=== PATIENT | male | born 1945 | race Caucasian/White ===

== ENCOUNTER 2021-05-31 07:14 | Inpatient (IN) ==
--- NOTE | 2021-05-13 14:57 | PAT Medication Instructions ---
Medication Instructions Date of Service May 13, 2021 Home Medications Ca carb-D3-mag [id number] [Caltrate + D3 Plus Minerals] 1 tab PO BID Marijuana-Medical Card 1 inh INHALATION TID PRN Super Beta Prostate Otc 1 tab PO BID apixaban [Eliquis] 5 mg PO BID ascorbic acid (vitamin C) 1 g PO QAM doxazosin 4 mg PO QPM esomeprazole magnesium 40 mg PO QAM prednisone 20 mg PO QPM simvastatin 40 mg PO HS tamsulosin 0.4 mg PO HS zinc 50 mg PO QAM ASK your prescriber and surgeon apixaban [Eliquis] 5 mg PO BID STOP taking 2 weeks before surgery (or as soon as possible if surgery is within 2 weeks) Super Beta Prostate Otc 1 tab PO BID DO NOT take the morning of surgery Ca carb-D3-mag [id number]-[id number]-[id number]-Zn [Caltrate + D3 Plus Minerals] 1 tab PO BID Marijuana-Medical Card 1 inh INHALATION TID PRN ascorbic acid (vitamin C) 1 g PO QAM zinc 50 mg PO QAM Take morning of surgery With a small sip of water, OTHERWISE NOTHING TO EAT OR DRINK AFTER MIDNIGHT: esomeprazole magnesium 40 mg PO QAM Take evening before surgery Ca carb-D3-mag fj-ixr-nbqf-Zn [Caltrate + D3 Plus Minerals] 1 tab PO BID [employer]-Medical Card 1 inh INHALATION TID PRN (if needed) doxazosin 4 mg PO QPM prednisone 20 mg PO QPM simvastatin 40 mg PO HS tamsulosin 0.4 mg PO HS Other Notes If you have any questions please call us at [phone] or [phone] or [phone] or [phone]
--- NOTE | 2021-05-17 11:14 | Anesthesiology Consultation ---
Date of Service May 17, 2021 Assessment & Plan (1) Encounter for pre-operative examination: - COVID screening: Per assessment on 05/17: Travel screen negative, no known COVID-19 positive contacts or current COVID-19 related symptoms. Surgeon arranging preop COVID testing. Awaiting results. - ETOH use: Patient reports drinking alcohol a few times a week. Per chart review, patient has noted to drink 24 drinks/week. Chart Review Chart Review: Acceptable Risk for Surgery and Patient seen in Pre Admission Testing Teaching & Discussion Pre-Anesthesia Teaching/Discussion Notes: Instructed NPO after midnight before surgery,except medications with 15 cc of water. Medication instructions provided according to the PAT guidelines. History Surgery Operation Date: 05/31/21 07:45 Proposed Procedures p L2-S1 Decompression Fusion Spinal Cord Monitoring - Johnny Morris DO Height/Weight Height: 5 ft 7 in Weight: 84.3 kg Allergies Allergy/AdvReac Type Severity Reaction Status Date / Time Penicillins Allergy Unknown Hives Verified 04/30/21 09:09 Sulfa (Sulfonamide Allergy Unknown Hives Verified 04/30/21 09:09 Antibiotics) morphine AdvReac Unknown Agitation Verified 05/17/21 11:12 FOOD Allergy Unknown Vazquez Uncoded 05/17/21 11:12 beans, eggplant- swelling, dyspnea Medications Home Medications Medication Instructions Recorded Confirmed Last Taken Ca carb-D3-mag [id number]-[id number] 1 tab PO BID 04/30/21 04/30/21 Unknown [Caltrate + D3 Plus Minerals] Marijuana-Medical Card 1 inh INHALATION TID PRN 04/30/21 04/30/21 Unknown Super Beta Prostate Otc 1 tab PO BID 04/30/21 04/30/21 Unknown apixaban [Eliquis] 5 mg PO BID 04/30/21 04/30/21 Unknown ascorbic acid (vitamin C) 1 g PO QAM 04/30/21 04/30/21 Unknown doxazosin 4 mg PO QPM 04/30/21 04/30/21 Unknown esomeprazole magnesium 40 mg PO QAM 04/30/21 04/30/21 Unknown prednisone 20 mg PO QPM 04/30/21 04/30/21 Unknown simvastatin 40 mg PO HS 04/30/21 04/30/21 Unknown tamsulosin 0.4 mg PO HS 04/30/21 04/30/21 Unknown zinc 50 mg PO QAM 04/30/21 04/30/21 Unknown Past Medical History Medical History Chronic back pain + LE radiculopathy Enlarged prostate GERD (gastroesophageal reflux disease) Hepatitis, autoimmune Dx 2 years ago, under surveillance by PCP Hyperlipidemia Hypertension Pulmonary embolism 01/2020 (unknown etiology) > on Eliquis Trigger finger R/L Exercise / Class Metabolic Activity III < 4 Walking/Shop/Light housework (one FS (no chest pain, mild SOB in setting of worsening back pain)) Past Family History Family History Brother Family hx of colon cancer Past Surgical History Surgical History History of back surgery No hardware History of carpal tunnel release R/L History of colonoscopy History of esophagogastroduodenoscopy (EGD) History of herniorrhaphy History of neck surgery No hardware Past Anesthesia History No Hx of Anesthesia Complications and No Family Hx of Anesthesia Complications History of PONV No Hx of PONV and No Hx of Motion Sickness Social History Smoking Status: Current every day smoker tobacco type: pipe and cigars Smoking cigarettes per day: Pipe/small cigars 5x/day Do You Dip or Chew Tobacco: No Hx Alcohol Use: Yes Alcohol type: beer alcohol intake frequency: a few times a week (24 per week) Hx Substance Use: Yes substance use type: marijuana Substance Use Type Other:: Medical marijuana (inhaled) 2-3x/day Review of Systems Patient denies chest pain, shortness of breath, fever, chills, cough, wheezing, palpitations. Physical Exam Vital Signs VITALS BP 159/88 P 89 TEMP SP02 95%RA RESP 18 PHYSICAL Full cervical extension range of motion. Full TMJ range of motion. TMD 3.5 finger breaths Mallampati Score 1 Dentition: intact, + one crown Lungs: clear throughout to auscultation Cardiac: regular rate and rhythm, no murmurs noted Spine: normal Carotid arteries: negative bruit Extremities: no edema Lab Results Anesthesia Preop Results Results Anesthesia Widget: WBC 13.47 K/uL (4.8-10.8) H 05/17/21 Hgb 15.6 g/dL (14.0-18.0) 05/17/21 Hct 46.0 % (42-52) 05/17/21 Plt 173 K/uL (130-400) 05/17/21 Na 138 mmol/L (136-145) 05/17/21 K 3.7 mmol/L (3.5-5.1) 05/17/21 Cl 104 mmol/L (98-107) 05/17/21 CO2 29 mmol/L (21-32) 05/17/21 BUN 11 mg/dl (7-18) 05/17/21 Creat 0.79 mg/dl (0.6-1.4) 05/17/21 Glucose Level 90 mg/dl (70-99) 05/17/21 PT 10.2 Seconds (9.0-12.0) 05/17/21 PTT 23.4 Seconds (21.0-31.0) 05/17/21 INR 1.0 (0.9-1.1) 05/17/21 Urine Color Yellow 05/17/21 Urine Appearance Clear (Clear) 05/17/21 Urine pH 6.0 (4.5-7.5) 05/17/21 Urine Specific [place] 1.005 (1.000-1.030) 05/17/21 Urine Protein Negative (Negative) 05/17/21 Urine Glucose (UA) Negative (Negative) 05/17/21 Urine Ketones Negative (Negative) 05/17/21 Urine Blood Negative (Negative) 05/17/21 Urine Nitrite Negative (Negative) 05/17/21 Urine Bilirubin Negative (Negative) 05/17/21 Urine Urobilinogen Negative (Negative) 05/17/21 Urine Leukocyte Esterase Negative (Negative) 05/17/21 Blood Type B Positive 05/17/21 Antibody Screen NEGATIVE 05/17/21 Lab Comments: Elevated WBC > preop labs to be forwarded to PCP for continuity of care Testing Electrocardiogram Date: 05/17/21 SR with marked sinus arrhythmia at 70bpm. NS STA. Chest X-Ray Date: 05/17/21 FINDINGS: The cardiac and mediastinal contours are normal. There is no evidence of focal pulmonary consolidation. There is no evidence of failure. No pleural effusions are visualized.[There are linear areas of scarring/atelectasis within the left lung. IMPRESSION: No active disease in the chest.
[~2021-05-31 07:14] MED LIST: ACETAMINOPHEN 500 MG TAB PO SCH; CLINDAMYCIN 600 MG/54 ML BAG IV SCH; CeleBREX 200 MG CAP PO SCH; GABAPENTIN 300 MG CAP PO SCH; LR 15ML/HR IV SCH
[2021-05-31] MEDS ORDERED: MIDAZOLAM HCL 1 MG/ML 2ML VIAL ONE (08:39)
[2021-05-31] MEDS ORDERED: fentaNYL citrate 100 MCG/2 ML VIAL ONE (08:39)
--- NOTE | 2021-05-31 08:49 | History & Physical Report ---
Date of Service May 31, 2021 Assessment & Plan (1) Neurogenic claudication due to lumbar spinal stenosis: Admission and Anticipated Discharge Date Admission Date: L2-S1 decompression fusion History of Present Illness Chief Complaint: Back and bilateral leg pain Primary Care Provider: Kris Lea DO This is a 75-year-old male who presents with chronic persistent back and leg pain. Failing course of nonoperative care is here for surgical intervention. Allergies Allergy/AdvReac Type Severity Reaction Status Date / Time Penicillins Allergy Unknown Hives Verified 05/31/21 08:13 Sulfa (Sulfonamide Allergy Unknown Hives Verified 05/31/21 08:13 Antibiotics) morphine AdvReac Unknown Agitation Verified 05/31/21 08:13 FOOD Allergy Unknown Vazquez Uncoded 05/31/21 08:13 beans, eggplant- swelling, dyspnea Home Medications Medication Instructions Recorded Confirmed Type Ca carb-D3-mag [id number]-Zn 1 tab PO BID 04/30/21 05/31/21 History [Caltrate + D3 Plus Minerals] Marijuana-Medical Card 1 inh INHALATION TID PRN 04/30/21 05/31/21 History Super Beta Prostate Otc 1 tab PO BID 04/30/21 05/31/21 History apixaban [Eliquis] 5 mg PO BID 04/30/21 05/31/21 History ascorbic acid (vitamin C) 1 g PO QAM 04/30/21 05/31/21 History doxazosin 4 mg PO QPM 04/30/21 05/31/21 History esomeprazole magnesium 40 mg PO QAM 04/30/21 05/31/21 History prednisone 20 mg PO QPM 04/30/21 05/31/21 History simvastatin 40 mg PO HS 04/30/21 05/31/21 History tamsulosin 0.4 mg PO HS 04/30/21 05/31/21 History zinc 50 mg PO QAM 04/30/21 05/31/21 History Past Med/Surg History Medical History Chronic back pain + LE radiculopathy Enlarged prostate GERD (gastroesophageal reflux disease) Hepatitis, autoimmune Dx 2 years ago, under surveillance by PCP Hyperlipidemia Hypertension Pulmonary embolism 01/2020 (unknown etiology) > on Eliquis Trigger finger R/L Surgical History History of back surgery No hardware History of carpal tunnel release R/L History of colonoscopy History of esophagogastroduodenoscopy (EGD) History of herniorrhaphy History of neck surgery No hardware Family History Brother Family hx of colon cancer Social History (Updated 04/30/21 @ 09:35 by Krista Del Valle RN) Smoking Status: Current every day smoker Cigarettes Per Day: Pipe/small cigars 5x/day; Second Hand Exposure: Yes (SPOUSE SMOKES/PARENTS SMOKED); Do You Dip or Chew Tobacco: No; Hx Alcohol Use: Yes Alcohol type: beer Hx Substance Use: Yes Substance Use Type Other:: Medical marijuana (inhaled) 2- 3x/day Preferred Language: Lebanese Communication Ability: Effective Day Trader Required: No Beliefs That Will Affect Care: None Current Living Situation: Spouse current occupational status: retired Other Information That Helps Us Care for You: No Feels Safe at Home: Yes Safety Concerns: Feels Safe At This Time Assistive Devices: Brace/Splint/Immobilizer and Glasses Assistive Devices Comment: BACK BRACE PRN Physical Exam Physical Exam: Patient is alert and oriented Heart regular rhythm Lungs clear to auscultation Results & Data ([facility]) Vital Signs (Past 12 Hours) Vital Signs Temp Pulse Resp BP Pulse Ox 05/31/21 08:10 36.6 C 88 20 177/99 H 97
--- NOTE | 2021-05-31 08:49 | History & Physical Bridge Note ---
Date of Service May 31, 2021 History & Physical Bridge Note I have examined the patient, reviewed the History & Physical and in the interval since the performance of the History & Physical I have noted the following changes of clinical significance: no changes noted
[2021-05-31] MEDS ORDERED: BUPIVACAINE/EPINEPHRINE 0.5% MPF 1:200,000 30 ML VIAL ONE (09:08)
[2021-05-31] MEDS ORDERED: KETAMINE 50 MG/5 ML SYRINGE ONE (09:14)
[2021-05-31] MEDS ORDERED: HYDROmorphone INJ 2 MG/ML SYR/VIAL IV PRN (09:20)
[2021-05-31] MEDS ORDERED: ONDANSETRON INJ 2 MG/ML 2 ML VIAL IV PRN ×2 (09:20→14:19)
[2021-05-31] MEDS ORDERED: ATROPINE SULFATE 0.1 MG/ML 10ML SYR IV PRN (09:20)
[2021-05-31] MEDS ORDERED: fentaNYL citrate 100 MCG/2 ML VIAL IV PRN (09:20)
[2021-05-31] MEDS ORDERED: ePHEDrine sulfate 50 MG/ML AMP IV PRN (09:20)
[2021-05-31] MEDS ORDERED: ROCURONIUM BROMIDE 10 MG/ML 5 ML VIAL IV ONE ×3 (10:05→12:40)
[2021-05-31] MEDS ORDERED: LIDOCAINE 2% 2 ML VIAL/AMP(20MG/ML) INFIL ONE (10:05)
[2021-05-31] MEDS ORDERED: PROPOFOL IV EMULSION 10 MG/ML 20 ML VIAL IV ONE (10:05)
[2021-05-31] MEDS ORDERED: ONDANSETRON INJ 2 MG/ML 2 ML VIAL ONE (10:05)
[2021-05-31] MEDS ORDERED: DEXAMETHASONE SOD INJ 4 MG/ML VIAL ONE (10:05)
[2021-05-31] MEDS ORDERED: PHENYLEPHRINE 100MCG/ML 5ML SYR ONE (10:06)
[2021-05-31] MEDS ORDERED: ePHEDrine sulfate 50 MG/ML SYR ONE (10:06)
[2021-05-31] MEDS ORDERED: NEOSTIGMINE METHYLSULFATE 1 MG/ML 10ML VIAL ONE (10:06)
[2021-05-31] MEDS ORDERED: GLYCOPYRROLATE 0.2 MG/ML VIAL ONE (10:06)
[2021-05-31] MEDS ORDERED: PHENYLEPHRINE HCL 10 MG/ML VIAL ONE (10:06)
[2021-05-31] MEDS ORDERED: HYDROmorphone INJ 2 MG/ML SYR/VIAL ONE (10:07)
[2021-05-31] MEDS ORDERED: FLOSEAL HEMOSTATIC MATRIX 10ML TOP ONE (12:27)
--- NOTE | 2021-05-31 12:41 | Operative Report ---
Post Operative Report Pre & Post Diagnosis Operation Date: 05/31/21 09:05 Pre-Op Diagnosis: Lumbar spinal stenosis with neurogenic claudication and radiculopathy Post-Op Diagnosis: Same I identified the patient and participated in the time-out.: Yes Procedure Operation Date: 05/31/21 09:05 Actual Procedures #1 revision decompression with bilateral medial facetectomies and foraminotomies L2-3, L3-4, L4-5 and L5-S1. #2 posterior spinal fusion L2-3, L3-4, L4-5 and L5- S1. #3 placement posterior segmental instrumentation L2-S1. #4 interbody fusion L4-5 L5-S1. #5 placed a peek cage 13 x 26 mm at L4-5 and L5-S1. #6 placement of locally harvested morselized autograft in the posterior gutters. #7 placement infuse collagen sponge, master graft in the posterior lateral gutters and I factor in the interbody space. Surgeon Johnny Morris, Back End Developer Harlan Pack Estimated Blood Loss 150 Findings Consistent with Post-Op Diagnosis Specimens None Indications This is a 75-year-old male who presents with admission diagnosis after failing since course of nonoperative care is here for the above-mentioned procedure. Description of Procedure Patient met with identified informed consent obtained. Patient was then taken to the operative suite underwent ablation placed in a prone positions on a Clive table on top Nav frame. All bony prominences well-padded eyes inspected to ensure no external pressure placed upon the bed at this point the lumbar spine was prepped and draped in a sterile fashion. Sharp dissection with the assistance of Bovie cautery performed down to and exposing the remaining lamina of L2 L3-L4-L5 and the sacral ala bilaterally. Helm cephalad fashion revision bilateral medial facetectomy and foraminotomy was performed at L2-3 L3-4 L4-5 L5-S1. Pedicle screws then placed in L2 L3-L4-L5 and S1 levels bilaterally with assistance of fluoroscopy by way of a transfemoral approach and left complete discectomy of L5-S1 was performed endplates curetted to subcortical bleeding bone and a 13 x 26 mm peek cage filled I factor tapped in position. Then proceeded L4-[address] of a transforaminal approach and left complete discectomy performed endplates curetted to subcortically bone and again a 13 x 26 mm peek cage filled with I factor tapped in position. Rods were then locked in final position bilaterally. The transverse processes of L 2 L3-L4-L5 and sacral ala burred to subcortically bone. Infuse collagen sponge master graft and local autograft was placed in the posterior gutters. 15 round ADRIEL drain inserted. The incision was then closed with 1 Vicryl in the fascia 2-0 Vicryl subcutaneously and 4 Monocryl for final skin closure. Steri-Strips dressings placed. Patient will continue PACU stable addition. Please note spinal cord monitoring was utilized at the procedure no changes noted. Clotilde Claros record was present at the entire surgery involved the patient positioning complex portions of the surgery and final skin closure. I attest to the content of the Intraoperative Record and any orders documented therein. Any exceptions are noted below.
--- NOTE | 2021-05-31 12:44 | Fluoroscopy Report ---
INTRAOPERATIVE RADIOGRAPHS CLINICAL HISTORY: Lumbar spinal fusion. Fluoroscopy time: 37 seconds. FINDINGS: 4 spot fluoroscopic views of the lumbar spine are presented. There has been discectomy at L 4-L5 and L5-S1 with laminectomy and posterior fusion seen from L2-S1. Interpedicular screws are prese nt at all levels. The orthopedic hardware appears intact. IMPRESSION: Intraoperative images from lumbar spinal fusion surgery as above. Electronically signed by: Lenin Orozco M.D. 05/31/2021 12:43 PM
--- NOTE | 2021-05-31 13:41 | Anesthesiology Progress Note ---
Date of Service May 31, 2021 Anesthesia Post Procedure Vital Signs Vital Signs: Temp Pulse Pulse Resp BP Pulse Ox 05/31/21 13:30 87 12 155/97 H 93 05/31/21 13:20 85 12 153/89 H 94 05/31/21 13:10 85 19 149/89 H 97 05/31/21 13:01 96.8 F L 85 18 138/92 95 05/31/21 08:10 97.9 F 88 20 177/99 H 97 Pain Intensity Back: Pain Intensity: 5 Transfer of Care Handoff Completed per policy Notes Mental Status: alert / awake / arousable and participated in evaluation Patient Amnestic to Procedure: Yes Nausea / Vomiting: adequately controlled Pain: adequately controlled Airway Patency, RR, SpO2: stable & adequate BP & HR: stable & adequate Hydration State: stable & adequate Anesthetic Complications: no major complications apparent and Pt Satisfied with anesthetic care
[2021-05-31] MEDS ORDERED: [UNRECOGNIZED DRUG - OTHER] INH PRN (14:19)
[2021-05-31] MEDS ORDERED: MAGNESIUM HYDROXIDE SUSP 30 ML UDC PO PRN (14:19)
[2021-05-31] MEDS ORDERED: SOD PHOSPHATE/SOD BIPHOSPHATE ENEMA 132 ML BTL PR PRN (14:19)
[2021-05-31] MEDS ORDERED: DO NOT ADMINISTER FLU VACCINE PRN (14:19)
[2021-05-31] MEDS ORDERED: ACETAMINOPHEN 500 MG TAB PO PRN (14:19)
[2021-05-31] MEDS ORDERED: LORazepam 0.5 MG TAB PO PRN (14:19)
[2021-05-31] MEDS ORDERED: traMADol HCL 50 MG TABLET PO PRN (14:19)
[2021-05-31] MEDS ORDERED: ACETAMINOPHEN 1,000 MG/100 ML VIAL IV PRN (14:19)
[2021-05-31] MEDS ORDERED: METOCLOPRAMIDE HCL INJ 5 MG/ML 2 ML VIAL IV PRN (14:19)
[2021-05-31] MEDS ORDERED: ONDANSETRON 4 MG OD TAB PO PRN (14:19)
[2021-05-31] MEDS ORDERED: ALUMINUM/MAGNESIUM SUSP 30 ML UDC PO PRN (14:19)
[2021-05-31] MEDS ORDERED: FAMOTIDINE 20 MG TAB PO PRN (14:19)
[2021-05-31] MEDS ORDERED: NALOXONE HCL 0.4 MG/1 ML VIAL/CARP IV PRN (14:19)
[2021-05-31] MEDS ORDERED: LORazepam 0.5 MG/1 ML VIAL IV PRN (14:19)
[2021-05-31] MEDS ORDERED: DO NOT ADMINISTER PNEUMOCOCCAL VACCINE PRN (14:19)
[2021-05-31] MEDS ORDERED: PROMETHAZINE HCL 12.5 MG in SODIUM CHLORIDE 0.9% 50 ML IV PRN (14:19)
[2021-05-31] MEDS ORDERED: diphenhydrAMINE Capsule 25 MG CAP PO PRN (14:19)
[2021-05-31] MEDS ORDERED: HYDROmorphone INJ 0.5 MG/0.5 ML SYR IV PRN (14:19)
[2021-05-31] MEDS ORDERED: hydrOXYzine HCl 25 MG TAB PO PRN (14:19)
--- NOTE | 2021-05-31 15:15 | Hospitalist Consultation ---
Date of Consultation May 31, 2021 Assessment & Plan (1) Post-operative state: Underwent L2 S1 decompression fusion with Dr. Morris, on May 31, for lumbar stenosis, neurogenic claudication Patient tolerated procedure well Pain management, PT OT per orthopedics Monitor H&H and hemodynamic status (2) Pulmonary embolism: History of pulmonary embolism Patient's been on Eliquis 5 mg twice a day Held Eliquis preoperatively Resume Eliquis per orthopedics discretion (3) Chronic alcohol use: Denies any alcohol withdrawal issues in the past Last drink on Thursday closely monitor for any alcohol withdrawal Start gabapentin 200 twice a day and closely monitor (4) Tobacco use: Will order nicotine patch Patient counseled on cessation (5) Autoimmune hepatitis: Continue home prednisone (6) GERD (gastroesophageal reflux disease): Continue home esomeprazole (7) Hyperlipidemia: Continue home simvastatin History of Present Illness Reason for Consultation: post-op medical management Attending Physician: Johnny Morris, DO History of Present Illness Patient is a 75-year-old male, with history of autoimmune hepatitis, GERD, hyperlipidemia, history of PE (on Eliquis) who now presents for scheduled surgery for lumbar stenosis. Underwent L2 S1 decompression fusion with Dr. Morris earlier today. Patient is everyday smoker, about 5 cigarettes a day, and drinker, reports 6 beers a day. Last drink was on Thursday. Denies any liquor. Patient follows with primary care physician, Dr. Ponce with [facility]. Currently pt is lying in bed in no acute distress. He is hard of hearing. Patient's is at the bedside and provides most of the history. Patient denies any chest pain, or history of heart disease, shortness of breath, or any chronic use of inhalers. He is just feeling tired after surgery however has no complaints only some postsurgical back pain. Catheter is placed and draining yellow urine. Patient is able to move legs and has no sensory loss. Denies any abdominal pain nausea or vomiting. Allergies Allergy/AdvReac Type Severity Reaction Status Date / Time Penicillins Allergy Unknown Hives Verified 05/31/21 08:13 Sulfa (Sulfonamide Allergy Unknown Hives Verified 05/31/21 08:13 Antibiotics) morphine AdvReac Unknown Agitation Verified 05/31/21 08:13 FOOD Allergy Unknown Vazquez Uncoded 05/31/21 08:13 beans, eggplant- swelling, dyspnea Home Medications Medication Instructions Recorded Confirmed Type Ca carb-D3-mag [id number] 1 tab PO BID 04/30/21 05/31/21 History [Caltrate + D3 Plus Minerals] Marijuana-Medical Card 1 inh INHALATION TID PRN 04/30/21 05/31/21 History Super Beta Prostate Otc 1 tab PO BID 04/30/21 05/31/21 History apixaban [Eliquis] 5 mg PO BID 04/30/21 05/31/21 History ascorbic acid (vitamin C) 1 g PO QAM 04/30/21 05/31/21 History doxazosin 4 mg PO QPM 04/30/21 05/31/21 History esomeprazole magnesium 40 mg PO QAM 04/30/21 05/31/21 History prednisone 20 mg PO QPM 04/30/21 05/31/21 History simvastatin 40 mg PO HS 04/30/21 05/31/21 History tamsulosin 0.4 mg PO HS 04/30/21 05/31/21 History zinc 50 mg PO QAM 04/30/21 05/31/21 History Patient History Medical History Chronic back pain + LE radiculopathy Enlarged prostate GERD (gastroesophageal reflux disease) Hepatitis, autoimmune Dx 2 years ago, under surveillance by PCP Hyperlipidemia Hypertension Pulmonary embolism 01/2020 (unknown etiology) > on Eliquis Trigger finger R/L Surgical History History of back surgery No hardware History of carpal tunnel release R/L History of colonoscopy History of esophagogastroduodenoscopy (EGD) History of herniorrhaphy History of neck surgery No hardware Family History Brother Family hx of colon cancer Social History Smoking Status: Current every day smoker Cigarettes Per Day: Pipe/small cigars 5x/day; Second Hand Exposure: Yes (SPOUSE SMOKES/PARENTS SMOKED); Do You Dip or Chew Tobacco: No; Hx Alcohol Use: Yes Alcohol type: beer Hx Substance Use: Yes Substance Use Type Other:: Medical marijuana (inhaled) 2- 3x/day Preferred Language: Faroese Communication Ability: Effective Cutter Inspector Required: No Beliefs That Will Affect Care: None Current Living Situation: Spouse current occupational status: retired Other Information That Helps Us Care for You: No Feels Safe at Home: Yes Safety Concerns: Feels Safe At This Time Assistive Devices: Brace/Splint/Immobilizer and Glasses Assistive Devices Comment: BACK BRACE PRN Review of Systems Review of Systems: All systems reviewed & are unremarkable except as noted in HPI & below Constitutional: + fatigue; no fever and no chills Respiratory: + cough (on and off); no dyspnea Cardiovascular: no chest pain and no edema Gastrointestinal: no abdominal pain, no nausea and no vomiting Physical Exam Constitutional: WD/WN, vitals as above Eyes: PERRL, conjunctivae normal, anicteric sclerae ENMT: external ear and nose normal, oropharynx normal Neck: trachea midline, no thyromegaly normal visual inspection Respiratory: normal respiratory effort, lungs clear to auscultation Cardiovascular: RRR, no murmur, no edema Chest (Breasts): Chest: normal inspection of chest Gastrointestinal (Abdomen): Inspection/Auscultation: abdomen normal to inspection and normal bowel sounds; abdomen not distended Percussion/Palpation: abdomen soft; abdomen nontender, no guarding and abdomen not rigid Musculoskeletal: Head/Neck/Chest: normocephalic and head atraumatic Skin: no rashes, warm and dry Neurologic: PERRL, EOMI, accommodation nl, no face palsy, no dysarthria Psychiatric: A+Ox3, euthymic affect Genitourinary: no CVA tenderness Vincent catheter placed, draining yellow urine Results & Data Results & Data ([facility]) Vital Signs (Past 12 Hours) Vital Signs Temp Pulse Pulse Resp BP Pulse Ox 05/31/21 14:31 36.4 C L 91 H 18 163/94 H 94 05/31/21 14:05 36.4 C L 92 H 20 154/99 H 94 05/31/21 13:50 89 14 167/101 H 93 05/31/21 13:40 36.1 C L 88 14 162/103 H 94 05/31/21 13:30 87 12 155/97 H 93 05/31/21 13:20 85 12 153/89 H 94 05/31/21 13:10 85 19 149/89 H 97 05/31/21 13:01 36.0 C L 85 18 138/92 95 05/31/21 08:10 36.6 C 88 20 177/99 H 97 Laboratory Results 05/31/21 05/31/21 05/31/21 Range/Units 08:07 07:40 07:40 COVID-19 Eval [facility] SARS-CoV-2, RNA, NAAT NEGATIVE (NEGATIVE) Blood Type B Positive Antibody Screen NEGATIVE Crossmatch See Detail Medications Administered Current Inpatient Medications Acetaminophen (Acetaminophen 500 Mg Tab) 1,000 mg PO PREOP AVILA Stop: 05/31/21 18:00 Last Admin: 05/31/21 08:00 Dose: 1,000 mg Documented by: Acetaminophen (Acetaminophen 500 Mg Tab) 1,000 mg PO Q8H PRN PRN Reason: MILD Pain Scale 1,2,3 & Pre PT Stop: 06/30/21 14:18 Al Hydrox/Mg Hydrox/Simethicone (Aluminum/Magnesium Susp 30 Ml Udc) 30 ml PO Q6H PRN PRN Reason: Dyspepsia Stop: 06/30/21 14:18 Ascorbic Acid (Ascorbic Acid 500 Mg Tab) 1,000 mg PO QAM [facility] Stop: 07/01/21 08:59 Atropine Sulfate (Atropine Sulfate 0.1 Mg/Ml 10ml Syr) 0.5 mg IV Q1M PRN PRN Reason: PACU Use-HR<40 &/or Bradycardi Stop: 05/31/21 17:20 Bisacodyl (Bisacodyl 10 Mg Supp) 10 mg MT DAILY PRN PRN Reason: Constipation Stop: 07/02/21 07:59 Celecoxib (Celebrex 200 Mg Cap) 200 mg PO PREOP AVILA Stop: 05/31/21 18:00 Last Admin: 05/31/21 07:59 Dose: 200 mg Documented by: Diphenhydramine HCl (Diphenhydramine Capsule 25 Mg Cap) 25 mg PO Q6H PRN PRN Reason: Allergic Rhinitis/Insomnia Stop: 06/30/21 14:18 Doxazosin Mesylate (Doxazosin Mesylate 4 Mg Tab) 4 mg PO QPM [facility] Stop: 06/30/21 20:59 Ephedrine Sulfate (Ephedrine Sulfate 50 Mg/Ml Amp) 5 mg IV Q5M PRN PRN Reason: PACU Use Only-SBP<90 mmHg Stop: 05/31/21 17:20 Famotidine (Famotidine 20 Mg Tab) 20 mg PO Q12H PRN PRN Reason: Dyspepsia Stop: 06/30/21 14:18 Fentanyl Citrate (Fentanyl Citrate 100 Mcg/2 Ml Vial) 50 mcg IV Q5M PRN PRN Reason: PACU Use Only-Pain Stop: 05/31/21 17:20 Last Admin: 05/31/21 13:27 Dose: 50 mcg Documented by: Gabapentin (Gabapentin 300 Mg Cap) 300 mg PO PREOP AVILA Stop: 05/31/21 18:00 Last Admin: 05/31/21 07:59 Dose: 300 mg Documented by: Hydromorphone HCl (Hydromorphone Inj 2 Mg/Ml Syr/Vial) 0.5 mg IV Q5M PRN PRN Reason: PACU Use Only-Pain Stop: 05/31/21 17:20 Hydromorphone HCl (Hydromorphone Inj 0.5 Mg/0.5 Ml Syr) 0.5 mg IV Q3H PRN PRN Reason: MOD pain (scale 4-6) & Pre PT Stop: 06/14/21 14:18 Hydromorphone HCl (Hydromorphone Inj 1 Mg/Ml Syringe) 1 mg IV Q3H PRN PRN Reason: severe pain (scale 7-10) Stop: 06/14/21 14:18 Hydroxyzine HCl (Hydroxyzine Hcl 25 Mg Tab) 25 mg PO Q8H PRN PRN Reason: Anxiety Stop: 06/30/21 14:18 Lactated Ringer's (Lr) 1,000 mls @ 15 mls/hr IV .Q24H [facility] Stop: 06/01/21 05:59 Last Infusion: 05/31/21 09:24 Dose: Infused Documented by: Clindamycin Phosphate (Cleocin) 600 mg in 54 mls @ 100 mls/hr IV PREOP AVILA Stop: 06/01/21 05:59 Last Admin: 05/31/21 09:24 Dose: 100 mls/hr Documented by: Lactated Ringer's (Lr) 1,000 mls @ 100 mls/hr IV .Q10H [facility] Stop: 06/30/21 14:18 Promethazine HCl 12.5 mg/ (Sodium Chloride) 50.5 mls @ 202 mls/hr IV Q6H PRN PRN Reason: Nausea &/or Vomiting Stop: 06/30/21 14:18 Acetaminophen (Ofirmev) 1,000 mg in 100 mls @ 400 mls/hr IV Q8H PRN PRN Reason: Pain Rating 1-3 & Pre PT Stop: 06/01/21 12:42 Lorazepam (Ativan) 0.5 mg in 1 mls @ 1 mls/min IV Q8H PRN PRN Reason: Sedation/Anxiety Stop: 06/30/21 14:18 Clindamycin Phosphate 600 mg/ (Dextrose) 54 mls @ 100 mls/hr IV Q8H [facility] Stop: 05/31/21 22:52 Influenza Virus Vaccine Quadrival (Do Not Administer Flu Vaccine) 1 ea N/A PRN PRN PRN Reason: Notification Stop: 06/30/21 14:18 Lorazepam (Lorazepam 0.5 Mg Tab) 0.5 mg PO Q8H PRN PRN Reason: sedation/anxiety Stop: 06/30/21 14:18 Magnesium Hydroxide (Magnesium Hydroxide Susp 30 Ml Udc) 30 ml PO Q24H PRN PRN Reason: Constipation Stop: 06/30/21 14:18 Metoclopramide HCl (Metoclopramide Hcl Inj 5 Mg/Ml 2 Ml Vial) 10 mg IV Q6H PRN PRN Reason: Nausea &/or Vomiting Stop: 06/30/21 14:18 Naloxone HCl (Naloxone Hcl 0.4 Mg/1 Ml Vial/Carp) 0.1 mg IV Q5M PRN PRN Reason: Oversedation/respiratory dep Stop: 06/30/21 14:18 Non-Formulary Medication (Marijuana-Medical Card) 1 puffs INH TID PRN PRN Reason: Pain Non-Formulary Medication (Super Beta Prostate Otc) 1 tab PO BID AVILA Stop: 06/30/21 20:59 Ondansetron HCl (Ondansetron Inj 2 Mg/Ml 2 Ml Vial) 4 mg IV ONCE PRN PRN Reason: PACU Use Only-Nausea/Vomiting Stop: 05/31/21 17:20 Ondansetron HCl (Ondansetron Inj 2 Mg/Ml 2 Ml Vial) 4 mg IV Q6H PRN PRN Reason: Nausea &/or Vomiting Stop: 06/30/21 14:18 Ondansetron HCl (Ondansetron 4 Mg Od Tab) 4 mg PO Q6H PRN PRN Reason: Nausea Stop: 06/30/21 14:18 Oxycodone HCl (Oxycodone Hcl Ir 5 Mg Tab (Immediate Release)) 5 - 10 mg PO Q4H PRN PRN Reason: Pain & Pre PT Stop: 06/14/21 14:18 Pantoprazole Sodium (Pantoprazole 40 Mg Tab) 40 mg PO QAM [facility] Stop: 07/01/21 08:59 Pneumococcal Polyvalent Vaccine (Do Not Administer Pneumococcal Vaccine) 1 ea N/A PRN PRN PRN Reason: Notification Stop: 06/30/21 14:18 Polyethylene Glycol (Polyethylene (Miralax) 17 Gm Pack) 17 gm PO Q6 [facility] Stop: 07/01/21 05:59 Prednisone (Prednisone 20 Mg Tab) 20 mg PO QPM [facility] Stop: 06/30/21 20:59 Senna/Docusate Sodium (Docusate Sodium/Senna 50/8.6mg Tab) 2 tab PO HS [facility] Stop: 06/30/21 20:59 Simvastatin (Simvastatin 40 Mg Tab) 40 mg PO HS [facility] Stop: 06/30/21 20:59 Sodium Biphosphate/Sodium Phosphate (Sod Phosphate/Sod Biphosphate Enema 132 Ml Btl) 132 ml MT ONE PRN PRN Reason: Constipation Stop: 06/30/21 14:18 Tamsulosin HCl (Tamsulosin Hcl 0.4 Mg Cap) 0.4 mg PO HS [facility] Stop: 06/30/21 20:59 Tramadol HCl (Tramadol Hcl 50 Mg Tablet) 50 - 100 mg PO Q4H PRN PRN Reason: Moderate-Severe pain & Pre PT Stop: 06/30/21 14:18 Zinc Sulfate (Zinc Sulfate 220 Mg Capsule) 220 mg PO QAM [facility] Stop: 07/01/21 08:59
[2021-05-31] MEDS ORDERED: ALBUT/IPRATROP 3MG/0.5MG NEB 3 ML VIAL NEB PRN (15:46)
[2021-05-31] MEDS: HYDROmorphone INJ 1 MG/ML SYRINGE IV PRN ×2 (17:21→23:05)
[2021-05-31] MEDS: LACTATED RINGER'S 1,000 ML IV SCH (17:21)
[2021-05-31] MEDS: NICOTINE 7 MG/24 HR TDSY TD SCH (17:35)
[2021-05-31] MEDS: CLINDAMYCIN 600 MG in DEXTROSE 5% 50 ML IV SCH (17:55)
[2021-05-31] MEDS ORDERED: GABAPENTIN 100 MG CAP PO SCH (21:00)
[2021-05-31] MEDS ORDERED: [UNRECOGNIZED DRUG - OTHER] PO SCH (21:00)
[2021-05-31] MEDS: CALCIUM CARBONATE 500 MG CHEWABLE TAB PO PRN (21:16)
[2021-05-31] MEDS: guaiFENesin 600 MG TABCR PO SCH (21:55)
[2021-05-31] MEDS: TAMSULOSIN HCL 0.4 MG CAP PO SCH (21:55)
[2021-05-31] MEDS: predniSONE 20 MG TAB PO SCH (21:55)
[2021-05-31] MEDS: DOCUSATE SODIUM/SENNA 50/8.6MG TAB PO SCH (21:55)
[2021-05-31] MEDS: SIMVASTATIN 40 MG TAB PO SCH (21:55)
[2021-05-31] MEDS: DOXAZosin MESYLATE 4 MG TAB PO SCH (21:55)
[2021-05-31] MEDS: GABAPENTIN 100 MG CAP PO SCH (23:04)
[2021-06-01] MEDS: CLINDAMYCIN 600 MG in DEXTROSE 5% 50 ML IV SCH (01:31)
[2021-06-01] MEDS: LACTATED RINGER'S 1,000 ML IV SCH (02:30)
[2021-06-01] MEDS: POLYETHYLENE (MIRALAX) 17 GM PACK PO SCH ×4 (05:52→23:01)
[2021-06-01 05:55] LABS: Basophils # (auto) 0.01 K/uL (0-0.2); Basophils % (auto) 0.1 %; Hematocrit (blood only) 37.5 % (42-52); Hemoglobin 12.6 g/dL (14.0-18.0); Immature Granulocytes # (auto) 0.06 K/uL (0.00-0.02); Immature Granulocytes % (auto) 0.4 %; Lymphocytes # (auto) 0.81 K/uL (1.2-3.4); Mean Corpuscular Hemoglobin 30.9 pg (25-34); Mean Corpuscular Hgb Conc 33.6 g/dL (32-36); Mean Corpuscular Volume 91.9 fL (80-100); Mean Platelet Volume 9.6 fL (7.4-10.4); Monocytes # (auto) 1.64 K/uL (0.11-0.59); Monocytes % (auto) 10.1 %; Neutrophils # (auto) 13.74 K/uL (1.4-6.5); Neutrophils % (auto) 84.4 %; Platelet Count 141 K/uL (130-400); RDW Coefficient of Variation 12.9 % (11.5-14.5); RDW Standard Deviation 43.2 fL (36.4-46.3); Red Blood Count 4.08 M/uL (4.7-6.1); White Blood Count 16.26 K/uL (4.8-10.8)
[2021-06-01 06:24] LABS: BUN Creatinine Ratio 27.5 (10-20); Calcium 9.1 mg/dl (8.5-10.1); Creatinine Clr Calc Pharmacy 113.6 ml/min; Est GFR (African American) 115.6 ml/min; Est GFR (Non-African American) 99.7 ml/min; Potassium 4.6 mmol/L (3.5-5.1)
[2021-06-01] MEDS: oxyCODONE HCL IR 5 MG TAB (IMMEDIATE RELEASE) PO PRN (07:39)
[2021-06-01] MEDS: NICOTINE 7 MG/24 HR TDSY TD SCH (07:40)
[2021-06-01] MEDS: GABAPENTIN 100 MG CAP PO SCH ×3 (07:40→20:21)
[2021-06-01] MEDS: ZINC SULFATE 220 MG CAPSULE PO SCH (07:41)
[2021-06-01] MEDS: ASCORBIC ACID 500 MG TAB PO SCH (07:41)
[2021-06-01] MEDS: PANTOprazole 40 MG TAB PO SCH (07:42)
[2021-06-01] MEDS: guaiFENesin 600 MG TABCR PO SCH ×2 (07:42→20:21)
--- NOTE | 2021-06-01 08:43 | Hospitalist Progress Note ---
Date of Service June 01, 2021 Assessment & Plan (1) Post-operative state: Underwent L2 S1 decompression fusion with Dr. Morris, on May 31, for lumbar stenosis, neurogenic claudication Patient tolerated procedure well Pain management, PT OT per orthopedics Monitor H&H and hemodynamic status Acute blood loss anemia/ post-op and dilutional pre-op Hgb 15.6, now 12.6 - expected, no need for blood transfusion -Continue monitor H&H Leukocytosis -Likely reactive, patient is also on chronic steroids -Continue to monitor, at this time no signs of infection noted (2) Pulmonary embolism: History of pulmonary embolism Patient's been on Eliquis 5 mg twice a day Held Eliquis preoperatively Resume Eliquis per orthopedics discretion (3) Chronic alcohol use: Denies any alcohol withdrawal issues in the past Last drink on Thursday closely monitor for any alcohol withdrawal Start gabapentin 200 TID and closely monitor (4) Tobacco use: Ordered nicotine patch Patient counseled on cessation (5) Autoimmune hepatitis: Continue home prednisone (6) GERD (gastroesophageal reflux disease): Continue home esomeprazole (7) Hyperlipidemia: Continue home simvastatin Admission and Anticipated Discharge Date Admission Date: May 31, 2021 Subjective Patient seen in follow-up of lumbar surgery Currently sitting up in bed, in no acute distress, ate breakfast, overall feels well except has some back pain Reports that he was already walking this morning He does have Vincent catheter placed He is passing gas, no BM No fevers, chills, chest pain, shortness of breath, abdominal pain nausea or vomiting Review of Systems Review of Systems: All systems reviewed & are unremarkable except as noted in HPI & below Constitutional: no fever and no chills Respiratory: no cough and no dyspnea Cardiovascular: no chest pain and no palpitations Gastrointestinal: no abdominal pain, no nausea and no vomiting Physical Exam Constitutional: WD/WN, vitals as above Eyes: PERRL, conjunctivae normal, anicteric sclerae ENMT: external ear and nose normal, oropharynx normal Neck: trachea midline, no thyromegaly normal visual inspection Respiratory: normal respiratory effort, lungs clear to auscultation Cardiovascular: RRR, no murmur, no edema Chest (Breasts): Chest: normal inspection of chest Gastrointestinal (Abdomen): Inspection/Auscultation: abdomen normal to inspection and normal bowel sounds; abdomen not distended Percussion/Palpation: abdomen soft; abdomen nontender, no guarding and abdomen not rigid Musculoskeletal: Head/Neck/Chest: normocephalic and head atraumatic Skin: no rashes, warm and dry Neurologic: PERRL, EOMI, accommodation nl, no face palsy, no dysarthria Psychiatric: A+Ox3, euthymic affect Genitourinary: no CVA tenderness Results & Data Results & Data ([facility]) Vital Signs (Past 12 Hours) Vital Signs Temp Pulse Resp BP BP Pulse Ox 06/01/21 07:27 36.8 C 89 18 124/75 97 06/01/21 02:30 36.5 C 82 16 136/80 100 05/31/21 22:50 36.5 C 95 H 18 141/84 H 99 Laboratory Results 06/01/21 06/01/21 05/31/21 Range/Units 05:21 05:21 08:07 WBC 16.26 H (4.8-10.8) K/uL RBC 4.08 L (4.7-6.1) M/uL Hgb 12.6 L (14.0-18.0) g/dL Hct 37.5 L (42-52) % MCV 91.9 (80-100) fL MCH 30.9 (25-34) pg MCHC 33.6 (32-36) g/dL RDW Std Deviation 43.2 (36.4-46.3) fL RDW Coeff of Brendan 12.9 (11.5-14.5) % Plt Count 141 (130-400) K/uL MPV 9.6 (7.4-10.4) fL Immature Gran % (Auto) 0.4 % Neut % (Auto) 84.4 % Lymph % (Auto) 5.0 % Dyer % (Auto) 10.1 % Eos % (Auto) 0.0 % Baso % (Auto) 0.1 % Neut # (Auto) 13.74 H (1.4-6.5) K/uL Lymph # (Auto) 0.81 L (1.2-3.4) K/uL Dyer # (Auto) 1.64 H (0.11-0.59) K/uL Eos # (Auto) 0.00 (0-0.5) K/uL Baso # (Auto) 0.01 (0-0.2) K/uL Immature Gran # (Auto) 0.06 H (0.00-0.02) K/uL Sodium 137 (136-145) mmol/L Potassium 4.6 (3.5-5.1) mmol/L Chloride 105 (98-107) mmol/L Carbon Dioxide 31 (21-32) mmol/L Anion Gap 1.0 L (3-11) BUN 16 (7-18) mg/dl Creatinine 0.59 L (0.6-1.4) mg/dl Est Cr Clr Drug Dosing 113.6 ml/min Est GFR ( Amer) 115.6 ml/min Est GFR (Non-Af Amer) 99.7 ml/min BUN/Creatinine Ratio 27.5 H (10-20) Glucose 110 H (70-99) mg/dl Calcium 9.1 (8.5-10.1) mg/dl Blood Type B Positive Antibody Screen NEGATIVE Crossmatch See Detail Medications Administered Current Inpatient Medications Acetaminophen (Acetaminophen 500 Mg Tab) 1,000 mg PO Q8H PRN PRN Reason: MILD Pain Scale 1,2,3 & Pre PT Stop: 06/30/21 14:18 Al Hydrox/Mg Hydrox/Simethicone (Aluminum/Magnesium Susp 30 Ml Udc) 30 ml PO Q6H PRN PRN Reason: Dyspepsia Stop: 06/30/21 14:18 Last Admin: 05/31/21 17:21 Dose: 30 ml Documented by: Albuterol (Albut/Ipratrop 3mg/0.5mg Neb 3 Ml Vial) 3 ml NEB Q4H PRN PRN Reason: cough, shortness of breath, wheezing Stop: 06/30/21 15:45 Ascorbic Acid (Ascorbic Acid 500 Mg Tab) 1,000 mg PO QAM [facility] Stop: 07/01/21 08:59 Last Admin: 06/01/21 07:41 Dose: 1,000 mg Documented by: Bisacodyl (Bisacodyl 10 Mg Supp) 10 mg VT DAILY PRN PRN Reason: Constipation Stop: 07/02/21 07:59 Calcium Carbonate (Calcium Carbonate 500 Mg Chewable Tab) 1,000 mg PO DAILY PRN PRN Reason: Heartburn Stop: 06/30/21 20:56 Last Admin: 05/31/21 21:16 Dose: 1,000 mg Documented by: Diphenhydramine HCl (Diphenhydramine Capsule 25 Mg Cap) 25 mg PO Q6H PRN PRN Reason: Allergic Rhinitis/Insomnia Stop: 06/30/21 14:18 Doxazosin Mesylate (Doxazosin Mesylate 4 Mg Tab) 4 mg PO QPM [facility] Stop: 06/30/21 20:59 Last Admin: 05/31/21 21:55 Dose: 4 mg Documented by: Famotidine (Famotidine 20 Mg Tab) 20 mg PO Q12H PRN PRN Reason: Dyspepsia Stop: 06/30/21 14:18 Last Admin: 05/31/21 18:40 Dose: 20 mg Documented by: Gabapentin (Gabapentin 100 Mg Cap) 200 mg PO TID [facility] Stop: 06/30/21 22:59 Last Admin: 06/01/21 07:40 Dose: 200 mg Documented by: Guaifenesin (Guaifenesin 600 Mg Tabcr) 600 mg PO Q12 [facility] Stop: 06/30/21 20:59 Last Admin: 06/01/21 07:42 Dose: 600 mg Documented by: Hydromorphone HCl (Hydromorphone Inj 0.5 Mg/0.5 Ml Syr) 0.5 mg IV Q3H PRN PRN Reason: MOD pain (scale 4-6) & Pre PT Stop: 06/14/21 14:18 Hydromorphone HCl (Hydromorphone Inj 1 Mg/Ml Syringe) 1 mg IV Q3H PRN PRN Reason: severe pain (scale 7-10) Stop: 06/14/21 14:18 Last Admin: 05/31/21 23:05 Dose: 1 mg Documented by: Hydroxyzine HCl (Hydroxyzine Hcl 25 Mg Tab) 25 mg PO Q8H PRN PRN Reason: Anxiety Stop: 06/30/21 14:18 Promethazine HCl 12.5 mg/ (Sodium Chloride) 50.5 mls @ 202 mls/hr IV Q6H PRN PRN Reason: Nausea &/or Vomiting Stop: 06/30/21 14:18 Acetaminophen (Ofirmev) 1,000 mg in 100 mls @ 400 mls/hr IV Q8H PRN PRN Reason: Pain Rating 1-3 & Pre PT Stop: 06/01/21 12:42 Lorazepam (Ativan) 0.5 mg in 1 mls @ 1 mls/min IV Q8H PRN PRN Reason: Sedation/Anxiety Stop: 06/30/21 14:18 Influenza Virus Vaccine Quadrival (Do Not Administer Flu Vaccine) 1 ea N/A PRN PRN PRN Reason: Notification Stop: 06/30/21 14:18 Lorazepam (Lorazepam 0.5 Mg Tab) 0.5 mg PO Q8H PRN PRN Reason: sedation/anxiety Stop: 06/30/21 14:18 Magnesium Hydroxide (Magnesium Hydroxide Susp 30 Ml Udc) 30 ml PO Q24H PRN PRN Reason: Constipation Stop: 06/30/21 14:18 Metoclopramide HCl (Metoclopramide Hcl Inj 5 Mg/Ml 2 Ml Vial) 10 mg IV Q6H PRN PRN Reason: Nausea &/or Vomiting Stop: 06/30/21 14:18 Last Admin: 05/31/21 22:17 Dose: 10 mg Documented by: Miscellaneous (Remove Nicoderm Patch) 1 ea N/A DAILY@0859 [facility] Stop: 07/01/21 08:58 Naloxone HCl (Naloxone Hcl 0.4 Mg/1 Ml Vial/Carp) 0.1 mg IV Q5M PRN PRN Reason: Oversedation/respiratory dep Stop: 06/30/21 14:18 Nicotine (Nicotine 7 Mg/24 Hr Tdsy) 7 mg TD QAM [facility] Stop: 06/30/21 15:44 Last Admin: 06/01/21 07:40 Dose: 7 mg Documented by: Ondansetron HCl (Ondansetron Inj 2 Mg/Ml 2 Ml Vial) 4 mg IV Q6H PRN PRN Reason: Nausea &/or Vomiting Stop: 06/30/21 14:18 Last Admin: 05/31/21 17:29 Dose: 4 mg Documented by: Ondansetron HCl (Ondansetron 4 Mg Od Tab) 4 mg PO Q6H PRN PRN Reason: Nausea Stop: 06/30/21 14:18 Oxycodone HCl (Oxycodone Hcl Ir 5 Mg Tab (Immediate Release)) 5 - 10 mg PO Q4H PRN PRN Reason: Pain & Pre PT Stop: 06/14/21 14:18 Last Admin: 06/01/21 07:39 Dose: 10 mg Documented by: Pantoprazole Sodium (Pantoprazole 40 Mg Tab) 40 mg PO QAM [facility] Stop: 07/01/21 08:59 Last Admin: 06/01/21 07:42 Dose: 40 mg Documented by: Pneumococcal Polyvalent Vaccine (Do Not Administer Pneumococcal Vaccine) 1 ea N/A PRN PRN PRN Reason: Notification Stop: 06/30/21 14:18 Polyethylene Glycol (Polyethylene (Miralax) 17 Gm Pack) 17 gm PO Q6 [facility] Stop: 07/01/21 05:59 Last Admin: 06/01/21 05:52 Dose: 17 gm Documented by: Prednisone (Prednisone 20 Mg Tab) 20 mg PO QPM [facility] Stop: 06/30/21 20:59 Last Admin: 05/31/21 21:55 Dose: 20 mg Documented by: Senna/Docusate Sodium (Docusate Sodium/Senna 50/8.6mg Tab) 2 tab PO [facility] Stop: 06/30/21 20:59 Last Admin: 05/31/21 21:55 Dose: 2 tab Documented by: Simvastatin (Simvastatin 40 Mg Tab) 40 mg PO [facility] Stop: 06/30/21 20:59 Last Admin: 05/31/21 21:55 Dose: 40 mg Documented by: Sodium Biphosphate/Sodium Phosphate (Sod Phosphate/Sod Biphosphate Enema 132 Ml Btl) 132 ml [place] ONE PRN PRN Reason: Constipation Stop: 06/30/21 14:18 Tamsulosin HCl (Tamsulosin Hcl 0.4 Mg Cap) 0.4 mg PO [facility] Stop: 06/30/21 20:59 Last Admin: 05/31/21 21:55 Dose: 0.4 mg Documented by: Tramadol HCl (Tramadol Hcl 50 Mg Tablet) 50 - 100 mg PO Q4H PRN PRN Reason: Moderate-Severe pain & Pre PT Stop: 06/30/21 14:18 Zinc Sulfate (Zinc Sulfate 220 Mg Capsule) 220 mg PO [facility] Stop: 07/01/21 08:59 Last Admin: 06/01/21 07:41 Dose: 220 mg Documented by:
--- NOTE | 2021-06-01 11:18 | Orthopedic Progress Note ---
Date of Service June 01, 2021 Assessment & Plan (1) Neurogenic claudication due to lumbar spinal stenosis: Admission and Anticipated Discharge Date Admission Date: May 31, 2021 This time we will continue physical therapy occupational therapy hopefully discharge home Thursday. Subjective Patient's back pain is controlled leg pain improved Physical Exam Physical Exam: Patient is good strength testing appears comfortable Results & Data ([facility]) Vital Signs (Past 12 Hours) Vital Signs Temp Pulse Resp BP BP Pulse Ox 06/01/21 11:11 36.9 C 101 H 18 133/80 97 06/01/21 07:27 36.8 C 89 18 124/75 97 06/01/21 02:30 36.5 C 82 16 136/80 100
[2021-06-01] MEDS: CALCIUM CARBONATE 500 MG CHEWABLE TAB PO PRN ×2 (12:14→20:22)
[2021-06-01] MEDS: HYDROmorphone INJ 1 MG/ML SYRINGE IV PRN ×3 (14:23→21:35)
[2021-06-01] MEDS: DOCUSATE SODIUM/SENNA 50/8.6MG TAB PO SCH (20:20)
[2021-06-01] MEDS: TAMSULOSIN HCL 0.4 MG CAP PO SCH (20:20)
[2021-06-01] MEDS: DOXAZosin MESYLATE 4 MG TAB PO SCH (20:22)
[2021-06-01] MEDS: SIMVASTATIN 40 MG TAB PO SCH (20:22)
[2021-06-01] MEDS: predniSONE 20 MG TAB PO SCH (20:22)
[2021-06-02] MEDS: POLYETHYLENE (MIRALAX) 17 GM PACK PO SCH ×3 (05:18→17:14)
[2021-06-02 05:51] LABS: Hematocrit (blood only) 35.2 % (42-52); Hemoglobin 11.8 g/dL (14.0-18.0); Mean Corpuscular Hemoglobin 31.1 pg (25-34); Mean Corpuscular Hgb Conc 33.5 g/dL (32-36); Mean Corpuscular Volume 92.9 fL (80-100); Mean Platelet Volume 9.4 fL (7.4-10.4); Platelet Count 141 K/uL (130-400); RDW Coefficient of Variation 13.2 % (11.5-14.5); RDW Standard Deviation 44.9 fL (36.4-46.3); Red Blood Count 3.79 M/uL (4.7-6.1); White Blood Count 13.75 K/uL (4.8-10.8)
[2021-06-02 06:28] LABS: BUN Creatinine Ratio 27.9 (10-20); Calcium 8.7 mg/dl (8.5-10.1); Creatinine Clr Calc Pharmacy 91.8 ml/min; Est GFR (African American) 105.9 ml/min; Est GFR (Non-African American) 91.4 ml/min; Magnesium 1.9 mg/dl (1.8-2.4); Potassium 4.2 mmol/L (3.5-5.1)
[2021-06-02 06:32] LABS: Phosphorus 2.1 mg/dl (2.5-4.9)
--- NOTE | 2021-06-02 07:01 | Hospitalist Progress Note ---
Date of Service June 02, 2021 Assessment & Plan (1) Post-operative state: Underwent L2 S1 decompression fusion with Dr. Morris, on May 31, for lumbar stenosis, neurogenic claudication Patient tolerated procedure well Pain management, PT OT per orthopedics Monitor H&H and hemodynamic status Acute blood loss anemia/ post-op and dilutional pre-op Hgb 15.6, down post-op 12.6 - now 11.8 - expected, no need for blood transfusion -Continue monitor H&H Leukocytosis -Likely reactive, patient is also on chronic steroids -Continue to monitor, at this time no signs of infection noted (2) Pulmonary embolism: History of pulmonary embolism Patient's been on Eliquis 5 mg twice a day Held Eliquis preoperatively Resume Eliquis per orthopedics discretion (3) Chronic alcohol use: Denies any alcohol withdrawal issues in the past Last drink on Thursday closely monitor for any alcohol withdrawal Continue gabapentin 300 TID and closely monitor (increased dose to help with pain issues as well) - 0.5mg tid prn ativan also ordered (4) Tobacco use: Ordered nicotine patch Patient counseled on cessation (5) Autoimmune hepatitis: Continue home prednisone (6) GERD (gastroesophageal reflux disease): Continue home esomeprazole (7) Hyperlipidemia: Continue home simvastatin Admission and Anticipated Discharge Date Admission Date: May 31, 2021 Subjective Patient seen in follow-up of lumbar surgery Currently laying in bed, in no acute distress, however complains of back pain and leg pain especially with ambulation Vincent catheter was removed, patient required straight cath this morning for about 600 cc of urine He is passing gas, no BM No fevers, chills, chest pain, shortness of breath, abdominal pain nausea or vomiting Review of Systems Review of Systems: All systems reviewed & are unremarkable except as noted in HPI & below Constitutional: no fever and no chills Respiratory: no cough and no dyspnea Cardiovascular: no chest pain and no palpitations Gastrointestinal: no abdominal pain, no nausea and no vomiting Physical Exam Constitutional: WD/WN, vitals as above Eyes: PERRL, conjunctivae normal, anicteric sclerae ENMT: external ear and nose normal, oropharynx normal Neck: trachea midline, no thyromegaly normal visual inspection Respiratory: normal respiratory effort, lungs clear to auscultation Cardiovascular: RRR, no murmur, no edema Chest (Breasts): Chest: normal inspection of chest Gastrointestinal (Abdomen): Inspection/Auscultation: abdomen normal to inspection and normal bowel sounds; abdomen not distended Percussion/Palpation: abdomen soft; abdomen nontender, no guarding and abdomen not rigid Musculoskeletal: Head/Neck/Chest: normocephalic and head atraumatic Skin: no rashes, warm and dry Neurologic: PERRL, EOMI, accommodation nl, no face palsy, no dysarthria Psychiatric: A+Ox3, euthymic affect Genitourinary: no CVA tenderness Results & Data Results & Data ([facility]) Vital Signs (Past 12 Hours) Vital Signs Temp Pulse Resp BP BP Pulse Ox 06/02/21 06:02 36.9 C 88 16 153/80 H 93 06/01/21 22:00 36.9 C 103 H 16 122/73 94 06/01/21 20:20 101 H 125/72 Laboratory Results 06/02/21 06/02/21 05/31/21 Range/Units 05:28 05:28 08:07 WBC 13.75 H (4.8-10.8) K/uL RBC 3.79 L (4.7-6.1) M/uL Hgb 11.8 L (14.0-18.0) g/dL Hct 35.2 L (42-52) % MCV 92.9 (80-100) fL MCH 31.1 (25-34) pg MCHC 33.5 (32-36) g/dL RDW Std Deviation 44.9 (36.4-46.3) fL RDW Coeff of Brendan 13.2 (11.5-14.5) % Plt Count 141 (130-400) K/uL MPV 9.4 (7.4-10.4) fL Sodium 136 (136-145) mmol/L Potassium 4.2 (3.5-5.1) mmol/L Chloride 104 (98-107) mmol/L Carbon Dioxide 29 (21-32) mmol/L Anion Gap 3.0 (3-11) BUN 20 H (7-18) mg/dl Creatinine 0.73 (0.6-1.4) mg/dl Est Cr Clr Drug Dosing 91.8 ml/min Est GFR ( Amer) 105.9 ml/min Est GFR (Non-Af Amer) 91.4 ml/min BUN/Creatinine Ratio 27.9 H (10-20) Glucose 128 H (70-99) mg/dl Calcium 8.7 (8.5-10.1) mg/dl Phosphorus 2.1 L (2.5-4.9) mg/dl Magnesium 1.9 (1.8-2.4) mg/dl Crossmatch See Detail Medications Administered Current Inpatient Medications Acetaminophen (Acetaminophen 500 Mg Tab) 1,000 mg PO Q8H PRN PRN Reason: MILD Pain Scale 1,2,3 & Pre PT Stop: 06/30/21 14:18 Al Hydrox/Mg Hydrox/Simethicone (Aluminum/Magnesium Susp 30 Ml Udc) 30 ml PO Q6H PRN PRN Reason: Dyspepsia Stop: 06/30/21 14:18 Last Admin: 05/31/21 17:21 Dose: 30 ml Documented by: Albuterol (Albut/Ipratrop 3mg/0.5mg Neb 3 Ml Vial) 3 ml NEB Q4H PRN PRN Reason: cough, shortness of breath, wheezing Stop: 06/30/21 15:45 Ascorbic Acid (Ascorbic Acid 500 Mg Tab) 1,000 mg PO QAM [facility] Stop: 07/01/21 08:59 Last Admin: 06/01/21 07:41 Dose: 1,000 mg Documented by: Bisacodyl (Bisacodyl 10 Mg Supp) 10 mg [place] DAILY PRN PRN Reason: Constipation Stop: 07/02/21 07:59 Calcium Carbonate (Calcium Carbonate 500 Mg Chewable Tab) 1,000 mg PO DAILY PRN PRN Reason: Heartburn Stop: 06/30/21 20:56 Last Admin: 06/01/21 20:22 Dose: 1,000 mg Documented by: Diphenhydramine HCl (Diphenhydramine Capsule 25 Mg Cap) 25 mg PO Q6H PRN PRN Reason: Allergic Rhinitis/Insomnia Stop: 06/30/21 14:18 Doxazosin Mesylate (Doxazosin Mesylate 4 Mg Tab) 4 mg PO QPM [facility] Stop: 06/30/21 20:59 Last Admin: 06/01/21 20:22 Dose: 4 mg Documented by: Famotidine (Famotidine 20 Mg Tab) 20 mg PO Q12H PRN PRN Reason: Dyspepsia Stop: 06/30/21 14:18 Last Admin: 05/31/21 18:40 Dose: 20 mg Documented by: Gabapentin (Gabapentin 100 Mg Cap) 200 mg PO TID [facility] Stop: 06/30/21 22:59 Last Admin: 06/01/21 20:21 Dose: 200 mg Documented by: Guaifenesin (Guaifenesin 600 Mg Tabcr) 600 mg PO Q12 [facility] Stop: 06/30/21 20:59 Last Admin: 06/01/21 20:21 Dose: 600 mg Documented by: Hydromorphone HCl (Hydromorphone Inj 0.5 Mg/0.5 Ml Syr) 0.5 mg IV Q3H PRN PRN Reason: MOD pain (scale 4-6) & Pre PT Stop: 06/14/21 14:18 Last Admin: 06/02/21 00:02 Dose: 0.5 mg Documented by: Hydromorphone HCl (Hydromorphone Inj 1 Mg/Ml Syringe) 1 mg IV Q3H PRN PRN Reason: severe pain (scale 7-10) Stop: 06/14/21 14:18 Last Admin: 06/01/21 21:35 Dose: 1 mg Documented by: Hydroxyzine HCl (Hydroxyzine Hcl 25 Mg Tab) 25 mg PO Q8H PRN PRN Reason: Anxiety Stop: 06/30/21 14:18 Promethazine HCl 12.5 mg/ (Sodium Chloride) 50.5 mls @ 202 mls/hr IV Q6H PRN PRN Reason: Nausea &/or Vomiting Stop: 06/30/21 14:18 Lorazepam (Ativan) 0.5 mg in 1 mls @ 1 mls/min IV Q8H PRN PRN Reason: Sedation/Anxiety Stop: 06/30/21 14:18 Dexamethasone 8 mg/ Syringe 2 mls @ 1 mls/min IV DAILY [facility] Stop: 07/02/21 08:59 Influenza Virus Vaccine Quadrival (Do Not Administer Flu Vaccine) 1 ea N/A PRN PRN PRN Reason: Notification Stop: 06/30/21 14:18 Lorazepam (Lorazepam 0.5 Mg Tab) 0.5 mg PO Q8H PRN PRN Reason: sedation/anxiety Stop: 06/30/21 14:18 Magnesium Hydroxide (Magnesium Hydroxide Susp 30 Ml Udc) 30 ml PO Q24H PRN PRN Reason: Constipation Stop: 06/30/21 14:18 Metoclopramide HCl (Metoclopramide Hcl Inj 5 Mg/Ml 2 Ml Vial) 10 mg IV Q6H PRN PRN Reason: Nausea &/or Vomiting Stop: 06/30/21 14:18 Last Admin: 05/31/21 22:17 Dose: 10 mg Documented by: Miscellaneous (Remove Nicoderm Patch) 1 ea N/A DAILY@0859 [facility] Stop: 07/01/21 08:58 Last Admin: 06/01/21 10:57 Dose: 1 ea Documented by: Naloxone HCl (Naloxone Hcl 0.4 Mg/1 Ml Vial/Carp) 0.1 mg IV Q5M PRN PRN Reason: Oversedation/respiratory dep Stop: 06/30/21 14:18 Nicotine (Nicotine 7 Mg/24 Hr Tdsy) 7 mg TD QAM [facility] Stop: 06/30/21 15:44 Last Admin: 06/01/21 07:40 Dose: 7 mg Documented by: Ondansetron HCl (Ondansetron Inj 2 Mg/Ml 2 Ml Vial) 4 mg IV Q6H PRN PRN Reason: Nausea &/or Vomiting Stop: 06/30/21 14:18 Last Admin: 05/31/21 17:29 Dose: 4 mg Documented by: Ondansetron HCl (Ondansetron 4 Mg Od Tab) 4 mg PO Q6H PRN PRN Reason: Nausea Stop: 06/30/21 14:18 Oxycodone HCl (Oxycodone Hcl Ir 5 Mg Tab (Immediate Release)) 5 - 10 mg PO Q4H PRN PRN Reason: Pain & Pre PT Stop: 06/14/21 14:18 Last Admin: 06/01/21 07:39 Dose: 10 mg Documented by: Pantoprazole Sodium (Pantoprazole 40 Mg Tab) 40 mg PO QAM [facility] Stop: 07/01/21 08:59 Last Admin: 06/01/21 07:42 Dose: 40 mg Documented by: Pneumococcal Polyvalent Vaccine (Do Not Administer Pneumococcal Vaccine) 1 ea N/A PRN PRN PRN Reason: Notification Stop: 06/30/21 14:18 Polyethylene Glycol (Polyethylene (Miralax) 17 Gm Pack) 17 gm PO Q6 [facility] Stop: 07/01/21 05:59 Last Admin: 06/02/21 05:18 Dose: 17 gm Documented by: Prednisone (Prednisone 20 Mg Tab) 20 mg PO QPM [facility] Stop: 06/30/21 20:59 Last Admin: 06/01/21 20:22 Dose: 20 mg Documented by: Senna/Docusate Sodium (Docusate Sodium/Senna 50/8.6mg Tab) [address] [facility] Stop: 06/30/21 20:59 Last Admin: 06/01/21 20:20 Dose: 2 tab Documented by: Simvastatin (Simvastatin 40 Mg Tab) [address] [facility] Stop: 06/30/21 20:59 Last Admin: 06/01/21 20:22 Dose: 40 mg Documented by: Sodium Biphosphate/Sodium Phosphate (Sod Phosphate/Sod Biphosphate Enema 132 Ml Btl) 132 ml [place] ONE PRN PRN Reason: Constipation Stop: 06/30/21 14:18 Tamsulosin HCl (Tamsulosin Hcl 0.4 Mg Cap) 0.[address] [facility] Stop: 06/30/21 20:59 Last Admin: 06/01/21 20:20 Dose: 0.4 mg Documented by: Tramadol HCl (Tramadol Hcl 50 Mg Tablet) 50 - 100 mg PO Q4H PRN PRN Reason: Moderate-Severe pain & Pre PT Stop: 06/30/21 14:18 Zinc Sulfate (Zinc Sulfate 220 Mg Capsule) 220 mg PO QAM [facility] Stop: 07/01/21 08:59 Last Admin: 06/01/21 07:41 Dose: 220 mg Documented by:
--- NOTE | 2021-06-02 07:33 | Orthopedic Progress Note ---
Date of Service June 02, 2021 Assessment & Plan (1) Neurogenic claudication due to lumbar spinal stenosis: At this point he seems to be little agitated and concerned that he may be having early symptoms consistent with alcohol withdrawal. We are to keep up with his Ativan at this point. If he continues to decline we will contact medicine. We will continue to advance his bowel regimen. If he needs to be straight cathed for urinary retention again we should leave the Vincent in place and consult urology. We should try to minimize the use of narcotics. We will continue mobilization efforts GI and DVT prophylaxis. Admission and Anticipated Discharge Date Admission Date: May 31, 2021 Subjective Patient seen bedside in room 318. He is a bit agitated this morning. He is upset that he is unable to move his bowels or urinate. He states he has heartburn it took him 6 hours to have 2 Tums delivered. Admittedly his leg pain is better. He has been up with physical therapy. When asked about his alcohol intake he typically drinks 6-8 beers every other day his last drink was on Thursday. He denies any other numbness, tingling, or paresthesias. Physical Exam Physical Exam: On exam he is alert and oriented. He answers questions appropriately. He is able to move all extremities to gravity. His dressings clean dry and intact his ADRIEL drain is placed out 20 cc on the shift 80 on the last. His hemoglobin is 11.8 and hematocrit is 35.2. His abdomen soft nontender his calves are supple nontender. Results & Data ([facility]) Vital Signs (Past 12 Hours) Vital Signs Temp Pulse Resp BP BP Pulse Ox 06/02/21 06:02 36.9 C 88 16 153/80 H 93 06/01/21 22:00 36.9 C 103 H 16 122/73 94 06/01/21 20:20 101 H 125/72
[2021-06-02] MEDS ORDERED: bisacodyL 10 MG SUPP PR PRN (08:00)
[2021-06-02] MEDS: dexAMETHasone 8 MG in SYRINGE 0 ML IV SCH (08:01)
[2021-06-02] MEDS: PANTOprazole 40 MG TAB PO SCH (08:02)
[2021-06-02] MEDS: ZINC SULFATE 220 MG CAPSULE PO SCH (08:02)
[2021-06-02] MEDS: ASCORBIC ACID 500 MG TAB PO SCH (08:02)
[2021-06-02] MEDS: guaiFENesin 600 MG TABCR PO SCH ×2 (08:02→21:28)
[2021-06-02] MEDS: GABAPENTIN 100 MG CAP PO SCH (08:02)
[2021-06-02] MEDS: NICOTINE 7 MG/24 HR TDSY TD SCH (08:03)
[2021-06-02] MEDS ORDERED: LORazepam 0.5 MG TAB PO PRN (10:42)
[2021-06-02] MEDS: oxyCODONE HCL IR 5 MG TAB (IMMEDIATE RELEASE) PO PRN ×3 (10:45→21:28)
[2021-06-02] MEDS: SENNA 8.6 MG TAB PO SCH (10:45)
[2021-06-02] MEDS: GABAPENTIN 300 MG CAP PO SCH ×2 (13:40→21:27)
[2021-06-02] MEDS: DOXAZosin MESYLATE 4 MG TAB PO SCH (21:26)
[2021-06-02] MEDS: predniSONE 20 MG TAB PO SCH (21:26)
[2021-06-02] MEDS: TAMSULOSIN HCL 0.4 MG CAP PO SCH (21:27)
[2021-06-02] MEDS: DOCUSATE SODIUM/SENNA 50/8.6MG TAB PO SCH (21:27)
[2021-06-02] MEDS: SIMVASTATIN 40 MG TAB PO SCH (21:28)
[2021-06-03] MEDS: POLYETHYLENE (MIRALAX) 17 GM PACK PO SCH ×2 (00:05→05:42)
[2021-06-03 05:54] LABS: Hematocrit (blood only) 35.2 % (42-52); Hemoglobin 11.7 g/dL (14.0-18.0); Mean Corpuscular Hemoglobin 30.5 pg (25-34); Mean Corpuscular Hgb Conc 33.2 g/dL (32-36); Mean Corpuscular Volume 91.7 fL (80-100); Mean Platelet Volume 9.4 fL (7.4-10.4); Platelet Count 139 K/uL (130-400); RDW Coefficient of Variation 13.1 % (11.5-14.5); RDW Standard Deviation 43.9 fL (36.4-46.3); Red Blood Count 3.84 M/uL (4.7-6.1); White Blood Count 15.02 K/uL (4.8-10.8)
[2021-06-03 06:16] LABS: BUN Creatinine Ratio 27.7 (10-20); Calcium 8.9 mg/dl (8.5-10.1); Creatinine Clr Calc Pharmacy 97.2 ml/min; Est GFR (African American) 108.4 ml/min; Est GFR (Non-African American) 93.5 ml/min; Potassium 4.1 mmol/L (3.5-5.1)
--- NOTE | 2021-06-03 07:43 | Hospitalist Progress Note ---
Date of Service June 03, 2021 Assessment & Plan (1) Post-operative state: Underwent L2 S1 decompression fusion with Dr. Morris, on May 31, for lumbar stenosis, neurogenic claudication Patient tolerated procedure well Pain management, PT OT per orthopedics Monitor H&H and hemodynamic status Acute blood loss anemia/ post-op and dilutional pre-op Hgb 15.6, down post-op 12.6 - now 11.7 (stable from yesterday) - expected, no need for blood transfusion -Continue monitor H&H Leukocytosis -Likely reactive, patient is also on chronic steroids -Continue to monitor, at this time no signs of infection noted (2) Pulmonary embolism: History of pulmonary embolism Patient's been on Eliquis 5 mg twice a day Held Eliquis preoperatively Resume Eliquis per orthopedics discretion (3) Chronic alcohol use: Denies any alcohol withdrawal issues in the past Last drink on Thursday closely monitor for any alcohol withdrawal Continue gabapentin 200 TID and closely monitor (gabapentin also helpful with pain) - 0.5mg tid prn ativan also ordered (4) Tobacco use: Ordered nicotine patch Patient counseled on cessation (5) Autoimmune hepatitis: Continue home prednisone (6) GERD (gastroesophageal reflux disease): Continue home esomeprazole (7) Hyperlipidemia: Continue home simvastatin Admission and Anticipated Discharge Date Admission Date: May 31, 2021 Subjective Patient seen in follow-up of lumbar surgery Currently sitting up in chair, in no acute distress Currently has no complaints he is eager about going home Says that he is urinating without difficulty, and having bowel movements No fevers, chills, chest pain, shortness of breath, abdominal pain nausea or vomiting Review of Systems Review of Systems: All systems reviewed & are unremarkable except as noted in HPI & below Constitutional: no fever and no chills Respiratory: no cough and no dyspnea Cardiovascular: no chest pain and no palpitations Gastrointestinal: no abdominal pain, no nausea and no vomiting Physical Exam Constitutional: WD/WN, vitals as above Eyes: PERRL, conjunctivae normal, anicteric sclerae ENMT: external ear and nose normal, oropharynx normal Neck: trachea midline, no thyromegaly normal visual inspection Respiratory: normal respiratory effort, lungs clear to auscultation Cardiovascular: RRR, no murmur, no edema Chest (Breasts): Chest: normal inspection of chest Gastrointestinal (Abdomen): Inspection/Auscultation: abdomen normal to inspection and normal bowel sounds; abdomen not distended Percussion/Palpation: abdomen soft; abdomen nontender, no guarding and abdomen not rigid Musculoskeletal: Head/Neck/Chest: normocephalic and head atraumatic Skin: no rashes, warm and dry Neurologic: PERRL, EOMI, accommodation nl, no face palsy, no dysarthria Psychiatric: A+Ox3, euthymic affect Genitourinary: no CVA tenderness Results & Data Results & Data ([facility]) Vital Signs (Past 12 Hours) Vital Signs Temp Pulse Resp BP Pulse Ox 06/03/21 07:35 36.8 C 86 18 154/96 H 93 06/02/21 21:58 37.0 C 89 16 165/87 H 95 Laboratory Results 06/03/21 06/03/21 Range/Units 05:36 05:36 WBC 15.02 H (4.8-10.8) K/uL RBC 3.84 L (4.7-6.1) M/uL Hgb 11.7 L (14.0-18.0) g/dL Hct 35.2 L (42-52) % MCV 91.7 (80-100) fL MCH 30.5 (25-34) pg MCHC 33.2 (32-36) g/dL RDW Std Deviation 43.9 (36.4-46.3) fL RDW Coeff of Brendan 13.1 (11.5-14.5) % Plt Count 139 (130-400) K/uL MPV 9.4 (7.4-10.4) fL Sodium 138 (136-145) mmol/L Potassium 4.1 (3.5-5.1) mmol/L Chloride 103 (98-107) mmol/L Carbon Dioxide 34 H (21-32) mmol/L Anion Gap 1.0 L (3-11) BUN 19 H (7-18) mg/dl Creatinine 0.69 (0.6-1.4) mg/dl Est Cr Clr Drug Dosing 97.2 ml/min Est GFR ( Amer) 108.4 ml/min Est GFR (Non-Af Amer) 93.5 ml/min BUN/Creatinine Ratio 27.7 H (10-20) Glucose 124 H (70-99) mg/dl Calcium 8.9 (8.5-10.1) mg/dl Medications Administered Current Inpatient Medications Acetaminophen (Acetaminophen 500 Mg Tab) 1,000 mg PO Q8H PRN PRN Reason: MILD Pain Scale 1,2,3 & Pre PT Stop: 06/30/21 14:18 Al Hydrox/Mg Hydrox/Simethicone (Aluminum/Magnesium Susp 30 Ml Udc) 30 ml PO Q6H PRN PRN Reason: Dyspepsia Stop: 06/30/21 14:18 Last Admin: 05/31/21 17:21 Dose: 30 ml Documented by: Albuterol (Albut/Ipratrop 3mg/0.5mg Neb 3 Ml Vial) 3 ml NEB Q4H PRN PRN Reason: cough, shortness of breath, wheezing Stop: 06/30/21 15:45 Ascorbic Acid (Ascorbic Acid 500 Mg Tab) 1,000 mg PO QAM [facility] Stop: 07/01/21 08:59 Last Admin: 06/02/21 08:02 Dose: 1,000 mg Documented by: Bisacodyl (Bisacodyl 10 Mg Supp) 10 mg [place] DAILY PRN PRN Reason: Constipation Stop: 07/02/21 07:59 Calcium Carbonate (Calcium Carbonate 500 Mg Chewable Tab) 1,000 mg PO DAILY PRN PRN Reason: Heartburn Stop: 06/30/21 20:56 Last Admin: 06/01/21 20:22 Dose: 1,000 mg Documented by: Diphenhydramine HCl (Diphenhydramine Capsule 25 Mg Cap) 25 mg PO Q6H PRN PRN Reason: Allergic Rhinitis/Insomnia Stop: 06/30/21 14:18 Doxazosin Mesylate (Doxazosin Mesylate 4 Mg Tab) 4 mg PO QPM [facility] Stop: 06/30/21 20:59 Last Admin: 06/02/21 21:26 Dose: 4 mg Documented by: Famotidine (Famotidine 20 Mg Tab) 20 mg PO Q12H PRN PRN Reason: Dyspepsia Stop: 06/30/21 14:18 Last Admin: 05/31/21 18:40 Dose: 20 mg Documented by: Gabapentin (Gabapentin 100 Mg Cap) 200 mg PO TID [facility] Stop: 07/03/21 08:59 Guaifenesin (Guaifenesin 600 Mg Tabcr) 600 mg PO Q12 [facility] Stop: 06/30/21 20:59 Last Admin: 06/02/21 21:28 Dose: 600 mg Documented by: Hydromorphone HCl (Hydromorphone Inj 0.5 Mg/0.5 Ml Syr) 0.5 mg IV Q3H PRN PRN Reason: MOD pain (scale 4-6) & Pre PT Stop: 06/14/21 14:18 Last Admin: 06/02/21 00:02 Dose: 0.5 mg Documented by: Hydromorphone HCl (Hydromorphone Inj 1 Mg/Ml Syringe) 1 mg IV Q3H PRN PRN Reason: severe pain (scale 7-10) Stop: 06/14/21 14:18 Last Admin: 06/01/21 21:35 Dose: 1 mg Documented by: Hydroxyzine HCl (Hydroxyzine Hcl 25 Mg Tab) 25 mg PO Q8H PRN PRN Reason: Anxiety Stop: 06/30/21 14:18 Promethazine HCl 12.5 mg/ (Sodium Chloride) 50.5 mls @ 202 mls/hr IV Q6H PRN PRN Reason: Nausea &/or Vomiting Stop: 06/30/21 14:18 Lorazepam (Ativan) 0.5 mg in 1 mls @ 1 mls/min IV Q8H PRN PRN Reason: Sedation/Anxiety Stop: 06/30/21 14:18 Dexamethasone 8 mg/ Syringe 2 mls @ 1 mls/min IV DAILY [facility] Stop: 07/02/21 08:59 Last Admin: 06/02/21 08:01 Dose: 1 mls/min Documented by: Influenza Virus Vaccine Quadrival (Do Not Administer Flu Vaccine) 1 ea N/A PRN PRN PRN Reason: Notification Stop: 06/30/21 14:18 Lorazepam (Lorazepam 0.5 Mg Tab) 0.5 mg PO Q5H PRN PRN Reason: sedation/anxiety Stop: 06/30/21 14:18 Magnesium Hydroxide (Magnesium Hydroxide Susp 30 Ml Udc) 30 ml PO Q24H PRN PRN Reason: Constipation Stop: 06/30/21 14:18 Metoclopramide HCl (Metoclopramide Hcl Inj 5 Mg/Ml 2 Ml Vial) 10 mg IV Q6H PRN PRN Reason: Nausea &/or Vomiting Stop: 06/30/21 14:18 Last Admin: 05/31/21 22:17 Dose: 10 mg Documented by: Miscellaneous (Remove Nicoderm Patch) 1 ea N/A DAILY@0859 [facility] Stop: 07/01/21 08:58 Last Admin: 06/02/21 08:03 Dose: 1 ea Documented by: Naloxone HCl (Naloxone Hcl 0.4 Mg/1 Ml Vial/Carp) 0.1 mg IV Q5M PRN PRN Reason: Oversedation/respiratory dep Stop: 06/30/21 14:18 Nicotine (Nicotine 7 Mg/24 Hr Tdsy) 7 mg TD QAM [facility] Stop: 06/30/21 15:44 Last Admin: 06/02/21 08:03 Dose: 7 mg Documented by: Ondansetron HCl (Ondansetron Inj 2 Mg/Ml 2 Ml Vial) 4 mg IV Q6H PRN PRN Reason: Nausea &/or Vomiting Stop: 06/30/21 14:18 Last Admin: 05/31/21 17:29 Dose: 4 mg Documented by: Ondansetron HCl (Ondansetron 4 Mg Od Tab) 4 mg PO Q6H PRN PRN Reason: Nausea Stop: 06/30/21 14:18 Oxycodone HCl (Oxycodone Hcl Ir 5 Mg Tab (Immediate Release)) 5 - 10 mg PO Q4H PRN PRN Reason: Pain & Pre PT Stop: 06/14/21 14:18 Last Admin: 06/02/21 21:28 Dose: 10 mg Documented by: Pantoprazole Sodium ([facility]oprazole 40 Mg Tab) [facility] Stop: 07/01/21 08:59 Last Admin: 06/02/21 08:02 Dose: 40 mg Documented by: Pneumococcal Polyvalent Vaccine (Do Not Administer Pneumococcal Vaccine) 1 ea N/A PRN PRN PRN Reason: Notification Stop: 06/30/21 14:18 Polyethylene Glycol (Polyethylene (Miralax) 17 Gm Pack) 17 gm PO Q6 [facility] Stop: 07/01/21 05:59 Last Admin: 06/03/21 05:42 Dose: Not Given Documented by: Prednisone (Prednisone 20 Mg Tab) 20 mg PO QPM [facility] Stop: 06/30/21 20:59 Last Admin: 06/02/21 21:26 Dose: 20 mg Documented by: Senna/Docusate Sodium (Docusate Sodium/Senna 50/8.6mg Tab) 2 tab PO [facility] Stop: 06/30/21 20:59 Last Admin: 06/02/21 21:27 Dose: 2 tab Documented by: Sennosides (Senna 8.6 Mg Tab) [facility].6 [facility] Stop: 07/02/21 10:29 Last Admin: 06/02/21 10:45 Dose: 8.6 mg Documented by: Simvastatin (Simvastatin 40 Mg Tab) 40 mg PO [facility] Stop: 06/30/21 20:59 Last Admin: 06/02/21 21:28 Dose: 40 mg Documented by: Sodium Biphosphate/Sodium Phosphate (Sod Phosphate/Sod Biphosphate Enema 132 Ml Btl) 132 ml [place] ONE PRN PRN Reason: Constipation Stop: 06/30/21 14:18 Tamsulosin HCl (Tamsulosin Hcl 0.4 Mg Cap) 0.4 mg PO [facility] Stop: 06/30/21 20:59 Last Admin: 06/02/21 21:27 Dose: 0.4 mg Documented by: Tramadol HCl (Tramadol Hcl 50 Mg Tablet) 50 - 100 mg PO Q4H PRN PRN Reason: Moderate-Severe pain & Pre PT Stop: 06/30/21 14:18 Zinc Sulfate (Zinc Sulfate 220 Mg Capsule) 220 mg PO [facility] Stop: 07/01/21 08:59 Last Admin: 06/02/21 08:02 Dose: 220 mg Documented by:
[2021-06-03] MEDS: guaiFENesin 600 MG TABCR PO SCH (08:20)
[2021-06-03] MEDS: GABAPENTIN 300 MG CAP PO SCH (08:20)
[2021-06-03] MEDS: ZINC SULFATE 220 MG CAPSULE PO SCH (08:20)
[2021-06-03] MEDS: ASCORBIC ACID 500 MG TAB PO SCH (08:20)
[2021-06-03] MEDS: SENNA 8.6 MG TAB PO SCH (08:20)
[2021-06-03] MEDS: PANTOprazole 40 MG TAB PO SCH (08:20)
[2021-06-03] MEDS: dexAMETHasone 8 MG in SYRINGE 0 ML IV SCH (08:22)
[2021-06-03] MEDS: NICOTINE 7 MG/24 HR TDSY TD SCH (08:28)
[2021-06-03] MEDS ORDERED: GABAPENTIN 300 MG CAP PO SCH (09:00)
[2021-06-03] MEDS ORDERED: GABAPENTIN 100 MG CAP PO SCH (09:00)
--- NOTE | 2021-06-03 09:39 | Discharge Summary ---
Date of Service June 03, 2021 Admission HPI Per Admitting Provider This is a 75-year-old male who presents with chronic persistent back and leg pain. Failing course of nonoperative care is here for surgical intervention. Principal Diagnosis Lumbar spinal stenosis with neurogenic claudication Discharge Data Allergies Allergy/AdvReac Type Severity Reaction Status Date / Time Penicillins Allergy Unknown Hives Verified 05/31/21 08:13 Sulfa (Sulfonamide Allergy Unknown Hives Verified 05/31/21 08:13 Antibiotics) morphine AdvReac Unknown Agitation Verified 05/31/21 08:13 FOOD Allergy Unknown Vazquez Uncoded 05/31/21 08:13 beans, eggplant- swelling, dyspnea Consultations 05/31/21 14:19 Consult Hospitalist Routine Procedures Performed Operation Date: 05/31/21 09:05 Actual Procedures p L2-S1 Decompression Fusion, application of BMP, Interbody at L4-L5 and L5-S1, Spinal Cord Monitoring(Not Applicable) - Johnny Morris DO Ordered Studies 05/31/21 09:05 FL lumbar spine 2-3V Routine Hospital Course (1) Neurogenic claudication due to lumbar spinal stenosis: Patient will decompression fusion tolerates well second orthopedic for postop labor postop day 1 is up ambulating progressed to postop day #2 on postop day #3 bowels working well pain controlled ambulating with a walker good strength testing ADRIEL drain decreasing probably. Subsequent discharge home. Discharge orders instructions from the chart for further review. Total Time Total Time Spent Total Time Spent (In Minutes): 20 minutes Discharge Plan Discharge Items Patient Disposition: Home - Self-Care Reason For Visit: Spinal Stenosis Lumbar Region without Neurogenic Discharge Diagnosis: Lumbar spinal stenosis with neurogenic claudication Activity: As commented below Non-emergency contact: Primary Care Provider Call non-emergency contact if: you have any medication questions Follow-up/Referrals: Kris Lea DO [Primary Care Provider] - Diet: Regular Addtl Attending Provider Instructions: ACTIVITY RECOMMENDATIONS: SELF CARE INSTRUCTIONS AFTER THORACIC/LUMBAR FUSIONS 1. You may walk to your tolerance. It is good exercise for your legs and back. Expect some back and intermittent leg aches and pains. 2. You may perform "counter-top" level activities (make a sandwich, giovanni with a project, etc.). 3. No bending or lifting of more than 10 pounds or back twisting of any nature (roll like a log when turning in bed). 4. You may ride in a car for 20-30 minutes at a time. No driving until after your first visit with your doctor. 5. Frequent changes of position and restricting sitting to 30 minutes at a time will help limit the amount of back spasms and stiffness you may experience. 6. You may discontinue the use of ambulatory aids (cane, crutches, etc.) once your strength and confidence allow. 7. You may mainspring former arbor end the shower and let water strike your incision when you arrive home at least once daily. Do not take a tub bath, sit in a hot tub or go into a swimming pool until after your first recheck in the office. SPECIAL CARE INSTRUCTIONS: VERY IMPORTANT TO READ AND REVIEW A. Your surgical incision has been closed with a cosmetic suture under the skin that will dissolve in about 6 weeks. In 14 days, you can use a pair of clean scissors and cut the suture that is left outside of the skin at the ends of your incision. 1. The small skin tapes can be removed 7 days after surgery if they have not fallen off by that point. 2. You may keep the wound open to air as much as possible to promote healing after post-op day number 5 unless told otherwise by your doctor. 3. If you think the wound looks like it is becoming infected (redness or worsening drainage) and/or you are experiencing fever, chill or worsening back pain and muscle spasms, contact the office so that we may evaluate you as soon as possible. B. Complications are uncommon, but please contact us if you have any signs or symptoms of: 1. wound infection (fever higher than 102.5 degrees F, redness, separation of wound, drainage, or increasing pain from the incision) 2. blood clots in legs (pain, swelling, redness and warmth in legs) 3. urinary tract infection (fever higher than 102.5 degrees F, burning upon urination or increased frequency of urination) 4. nerve problems (inability to walk on your toes or heels, numbness, loss of bowel or bladder control) 5. any other symptoms that concern you C. Please call the office at if you have any concerns or questions about your operation or recovery. D. No smoking! Smoking drastically decreases the chance of a solid fusion. E. Do not take any anti-inflammatory medications (Indocin, Advil, Motrin, Aspirin, Naprosyn, etc.) as these may inhibit the chance of a solid fusion. Tylenol is okay to take for pain. MANAGING PAIN AFTER SPINAL SURGERY 1. Narcotic medication is intended for short-term use and will be provided for surgical pain. Surgical pain usually lasts for a period of 4-6 weeks. Narcotic medication includes Percocet, Vicodin, Darvocet, Tylenol #3 or Lortab. 2. Longer-term pain is more appropriately treated with non-narcotic medication such as Tylenol ES. 3. Muscle spasm is not appropriately treated with narcotics. Muscle relaxers such as Soma, Flexeril or Skelaxin can be used along with Tylenol ES. 4. Remember that we all live with some "aches and pains". This is not unusual or uncommon after an injury or as we get older. a. Back pain is expected and may include muscle spasms for 4 to 6 weeks after surgery. The pain should gradually improve. If the pain worsens for no apparent reason, please contact the office. b. Intermittent leg pain may also be experienced and should not be concerned about unless it worsens for no apparent reason. If so, please contact the office. 5. We will provide appropriate medication within the normal guidelines of their prescribed use. We will also be very cautious and aware of potential abuse and extended duration of patients' medication needs. a. Pain medications are for your comfort and to assist with sleep and rest so that the tissue can heal. They are not provided in order to return to normal activity and should not be used through the day. To do so or worsening pain at night can result from ongoing tissue damage and development of tolerance to the prescribed medicine. 6. Please allow 2-3 days to process refills. Prescriptions will not be mailed but must be picked up at the office. FOLLOW UP VISIT: Keep your scheduled follow-up appointment. Any questions, please call the office at . Pending Studies at Discharge: No Stand-Alone Forms: My [facility] P[facility], Smoking Cessation Medications and DC Order Prescriptions: New tramadol 50 mg tablet 50 mg PO Q6H PRN (Reason: pain, moderate) Qty: 30 RF: 0 oxycodone 5 mg tablet 5 mg PO Q6H PRN (Reason: pain, severe) Qty: 30 RF: 0 Continued ascorbic acid (vitamin C) 1,000 mg Tablet 1 g PO QAM RF: 0 prednisone 10 mg Tablet 20 mg PO QPM RF: 0 simvastatin 40 mg Tablet 40 mg PO HS RF: 0 tamsulosin 0.4 mg Capsule 0.4 mg PO HS RF: 0 esomeprazole magnesium 40 mg Capsule,Delayed Release(Dr/Ec) 40 mg PO QAM RF: 0 doxazosin 4 mg Tablet 4 mg PO QPM RF: 0 Eliquis 5 mg Tablet 5 mg PO BID RF: 0 Caltrate + D3 Plus Minerals 300 mg-800 unit -25 mg-0.5 mg Tablet 1 tab PO BID RF: 0 zinc 50 mg Tablet 50 mg PO QAM RF: 0 Marijuana-Medical Card 1 inh inhalation TID PRN (Reason: Pain) RF: 0 Super Beta Prostate Otc 1 tab PO BID RF: 0 Discharge Orders: Discharge Order (Routine); Ordered 06/03/21 Ordered By: Johnny Morris Admission Data Admit Date/Time: 05/31/21 13:04 Attending Provider: Johnny Morris Admit Provider: Johnny Morris Primary Care Provider: Kris Lea Other Providers: Zev Stewart ; Tala Schroeder
== END 2021-06-03 12:50 | disposition home or self-care (01) | DRG 455 ==
LOC: ASU 07:14 → 3E 13:04